=== PATIENT | female | born 1960 | race Caucasian/White ===

== ENCOUNTER 2020-03-04 15:26 | Emergency (ER) | payer BC | END 2020-03-04 16:08 | disposition left against medical advice (07) | LOC: JP.ED 15:26 | DX: Z53.21 Procedure and treatment not carried out due to patient leaving prior to being seen by health care provider (principal) ==

== ENCOUNTER 2022-04-10 08:26 | Day surgery (SDC) | payer BC, MEDICAID ==
[~2022-04-10 08:26] MED LIST: Midazolam 1 MG/ML 2 ML SDV ONE; Propofol 200 MG/20 ML SDV ONE; fentaNYL 50 MCG/ML SDV ONE
[2022-04-10] MEDS ORDERED: Lactated Ringers 1,000 ML IV SCH (08:45)
[2022-04-10] MEDS ORDERED: Propofol 200 MG/20 ML SDV ONE (11:08)
== END 2022-04-10 12:23 | disposition home or self-care (01) ==
LOC: JP.SDS 08:26
PROVIDERS: ATTEND Student in an Organized Health Care Education/Training Program
DX: D12.7 Benign neoplasm of rectosigmoid junction (principal); F17.200 Nicotine dependence, unspecified, uncomplicated; Z88.0 Allergy status to penicillin
CPT/HCPCS: 45385; 88305; J2250; J2704; J3010; J7120

== ENCOUNTER 2024-09-29 07:06 | Day surgery (SDC) | payer MEDICAID ==
[2024-09-29] MEDS ORDERED: Midazolam 1 MG/ML 2 ML SDV ONE (07:33)
[2024-09-29] MEDS ORDERED: fentaNYL 50 MCG/ML SDV ONE (07:33)
[2024-09-29] MEDS ORDERED: Propofol 200 MG/20 ML SDV ONE (07:33)
[2024-09-29] MEDS: Lactated Ringers 1,000 ML IV SCH (07:52)
== END 2024-09-29 09:56 | disposition home or self-care (01) ==
LOC: JP.SDS 07:06
PROVIDERS: ATTEND Surgery
DX: Z12.11 Encounter for screening for malignant neoplasm of colon (principal); K57.30 Diverticulosis of large intestine without perforation or abscess without bleeding; R19.5 Other fecal abnormalities; Z88.0 Allergy status to penicillin; Z86.0100 Personal history of colon polyps, unspecified
CPT/HCPCS: 45378; J2250; J2704; J3010; J7120; 00811-QZ